=== PATIENT | male | born 1985 | race Caucasian/White ===

== ENCOUNTER → 2023-12-21 | Outpatient (CLI) | payer SELFPAY | LOC: M OUTALCOH 09:58 | PROVIDERS: ATTEND Psychiatry & Neurology Psychiatry | DX: Z03.89 Encounter for observation for other suspected diseases and conditions ruled out (principal) ==

== ENCOUNTER 2023-12-28 11:37 | Outpatient (RCR) | payer SELFPAY | END 2024-01-08 | LOC: M OUTALCOH 11:37 | PROVIDERS: ATTEND Psychiatry & Neurology Psychiatry | DX: Z03.89 Encounter for observation for other suspected diseases and conditions ruled out (principal) ==